=== PATIENT | female | born 1940 | race Caucasian/White ===

== ENCOUNTER → 2016-12-24 | Outpatient (CLI) | payer MEDICARE ==
[~2016-12-24] MED LIST: ACHD5005 PO; AMLO10TA4 PO; ASP81CT PO; ASPI-875 PO; BIOT1TAB2 PO; BIOT25006 PO; BIOTIN 5000MCG PO; CHOL200018 PO; DOCU100T7 PO; ENAL1TAB8 PO; FURO20TA4 PO; GLUC500C2 PO; INDA1.25 PO; KETO-22 PO; LEVO500T69 PO; METO-272 PO; METO100T5 PO; MTF500T PO; OMEG300C5 PO; OMG1KC PO; PNT40TEC PO; POTA10TA17 PO; SIMV20TA3 PO; [UNRECOGNIZED DRUG - OTHER]; potassium citrate PO
--- OUTSIDE RECORDS SUMMARY | 2016-12-24 10:47 | XMS REPORT | Continuity of Care Document ---
Author Author [facility] Organization [facility] Address Unknown Phone Unavailable Care Team Providers Care Graduate Research Assistant Name Role Phone Morelia Alfaro PCP [phone] Source Comments Some departments are not documenting in the electronic medical record. If you do not see the information that you expected, contact Release of Information in the Health Information Management department at [phone] for further assistance in locating additional records.[facility] Active Allergies and Adverse Reactions No Known Allergies Current Medications Prescription Sig. Disp. Refills Start End Date Status Date amLODIPine (NORVASC) 5 mg Take 5 mg by mouth daily. Active tablet pantoprazole DR Take 40 mg by mouth Active (PROTONIX) 40 mg tablet daily. indapamide(+) (LOZOL) Take 1.25 mg by mouth Active 1.25 mg tablet daily. simvastatin (ZOCOR) 20 mg Take 20 mg by mouth at Active tablet bedtime daily. metoprolol XL (TOPROL XL) Take 100 mg by mouth at Active 100 mg tablet bedtime daily. furosemide (LASIX) 20 mg Take 20 mg by mouth as Active tablet Needed. potassium chloride Take 20 mEq by mouth as Active (KLOR-CON) 20 mEq packet Needed. ALPRAZolam (XANAX) 0.25 Take 0.25 mg by mouth as Active mg tablet Needed. aspirin 81 mg chewable Take 81 mg by mouth Active tablet daily. BIOTIN PO Take 1 Tab by mouth Active daily. metFORMIN (GLUCOPHAGE) Take 1,000 mg by mouth Active 1,000 mg tablet twice daily with meals. Indications: TYPE 2 DIABETES MELLITUS ERGOCALCIFEROL (VITAMIN Take 1,000 mg by mouth Active D2) (VITAMIN D PO) daily. cholecalciferol (VITAMIN Take 1,000 Units by mouth Active D-3) 1,000 units tablet daily. letrozole (FEMARA) 2.5 mg Take 1 Tab by mouth 90 Tab 3 08/17/20 Active tablet daily. 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 Left, grade 1 IDC (ER100%, PR100%, HER2 0+, Ki-67 20%) at 2:00, dx 01/2015 2. Heterogeneously dense breast tissue HISTORY: Ms. Sullivan is a female who presented to [facility] on 02/20/2015 at age 74 for evaluation of left breast cancer. She went to her PCP for a yearly exam and her PCP found a left breast lump at the beginning of January 2015. Left breast sono-guided biopsy 02/07/15 ([place], [place]) revealed a grade 2 invasive ductal carcinoma. She had a previous left stereotactic biopsy in December 2012 which revealed a hyalinized fibroadenoma. She has had multiple benign excisional biopsies in both breasts. Ms. Sullivan underwent left RSL lumpectomy/SLNB on 08/26/15. She finished radiation with Dr. Iglesias in [place], [place] on 11/12/15. PATHOLOGY: Tumor: 2.1 cm tumor bed with 1.6 cm residual tumor; 40-50% tumor viability Margins Free From Tumor: Yes ER: positive AR: positive Her 2: negative Grade: 1 Lymph Nodes: 0/5 LVSI: no Extranodal extension: no BREAST IMAGING: Mammogram: -- Bilateral diagnostic mammogram 02/06/15 ([place], [place]) revealed heterogeneously dense breast tissue. There were no definitive masses seen. Ultrasound: -- Left breast ultrasound 02/06/15 ([place], [place]) revealed a 2.1 cm hypoechoic mass at 2:00, 7 cm FTN. There was a nonspecific 1.3 cm axillary lymph node. -- Left axillary ultrasound 02/20/15 () revealed no suspicious axillary lymph nodes. REPRODUCTIVE HEALTH: Age at first Menarche: 12 Age at First Live : N/A Age at Menopause: 55 : 0 Para: 2 : N/A PROCEDURE: Left RSL lumpectomy/SLNB, 08/26/15 PERTINENT PMH: HTN, GERD, DM2 controlled FAMILY HISTORY: No family history of breast, ovarian, prostate or pancreatic cancer PHYSICAL EXAM on PRESENTATION: Left - 2.5-3 cm lump at 2:30, 7 cm FTN. Multiple well healed excisional biopsy scars. Right - No palpable breast masses. No skin, nipple, or areolar change. Multiple excisional biopsy incisions. No supraclavicular or axillary adenopathy. MEDICAL ONCOLOGY: Dr. Hutchins PRESENT THERAPY: Neoadjuvant Femara started 02/25/15 REFERRED BY: Self Most Recent Encounters Date Type Specialty Providers Description 10/12/2016 Telephone Oncology Leela Tsai MD Appointment - reschedule appointments Immunizations Name Dates Previously Given Next Due Pneumococcal Vaccine 09/08/2016 (23-Crystal Adult) Social History Tobacco Use Types Packs/Day Years Used Date Former Smoker 2 Smokeless Tobacco: Never Used Alcohol Use Drinks/Week oz/Week Comments Yes Last Filed Vital Signs Vital Sign Reading Time Taken Blood Pressure 147/69 09/18/2016 8:57 AM [employer] Pulse 77 09/18/2016 8:57 AM [employer] Temperature 36.8 C (98.2 F) 09/18/2016 8:57 AM [employer] Respiratory Rate 16 09/18/2016 8:57 AM [employer] Height 1.651 m (5' 5") 09/18/2016 8:57 AM [employer] Weight 69.31 kg (152 lb 12.8 oz) 09/18/2016 8:57 AM [employer] Body Mass Index 25.43 09/18/2016 8:57 AM [employer] Oxygen Saturation 97% 09/18/2016 8:57 AM [employer] Plan of Care Date Type Specialty Providers Description 03/23/2017 Appointment Radiology Benji Oscar DO [address] [place] [address] [phone] (Fax) 03/23/2017 Appointment Radiology Benji Oscar DO [address] [place] [address] [phone] (Fax) 03/23/2017 Appointment Oncology Colt Hutchins MD [address] [facility] [address] [place] [address] [phone] (Fax) 03/23/2017 Appointment Breast Clinic / Breast Leela Tsai MD [place] [address] [place] [address] [phone] (Fax) Health Maintenance Due Date Last Done Comments Physical (Comprehensive) 1947 Exam Pertussis Vaccine 1951 Tetanus Vaccine 1957 Shingles Vaccine 2000 Influenza Vaccine 07/02/2016 Prevnar/Pneumovax (#2) 09/08/2017 09/08/2016 Osteoporosis Screening Completed 12/04/2015 Results from Last 3 Months Not on file
--- NOTE | 2016-12-30 07:37 | ECHOCARDIOGRAPHY REPORT ---
PROCEDURE PHYSICIAN: GRADY HUNTLEY DATE OF PROCEDURE: 12/24/2016 TWO DIMENSIONAL ECHOCARDIOGRAM REPORT PRIMARY PHYSICIAN: Dr. Alfaro OTHER PHYSICIAN: REFERRING PHYSICIAN: ORDERING PHYSICIAN: Mary Rebolledo APRN INDICATION FOR THE PROCEDURE: 1. Coronary artery disease. 2. Hypertension. 3. Hyperlipidemia. MEASUREMENTS DERIVED VALUES LV DIAMETER (LAX) NORMALS NORMALS Diastolic 4.8 (3.6-5.2) Eject. Fract. (60%+/-6%) Systolic (2.3-3.9) Diastolic Vol. % Shortening (0.22-0.42) Systolic Vol. Aortic Root 2.5 IVS THICKNESS Diastolic 0.8 (0.6-1.1) LVPW THICKNESS Diastolic 0.8 (0.6-1.1) LA DIAMETER Systolic 4.5 (2.1-3.7) DESCRIPTION: Two-dimensional echocardiography shows well preserved global left ventricular systolic function without distinct regional wall motion abnormalities. Left ventricular ejection fraction 55 to 60%. There appears to be mild mitral annular calcification. There is no significant pericardial effusion. There is mild to moderate mitral regurgitation. There is no Doppler evidence of significant valvular stenosis. There is mild enlargement of the left atrium. There is no evidence of any significant intracardiac shunt on this transthoracic echocardiographic study. Inferior vena cava appears to be mildly dilated but does seem to have inspiratory collapse. CONCLUSIONS: 1. Normal global left ventricular systolic function with an ejection fraction of approximately 55 to 60%. 2. Mild to moderate mitral regurgitation. 3. Trivial tricuspid regurgitation. 4. Pulmonary artery systolic pressure is estimated to be within normal limits. 5. Mild diastolic dysfunction of the left ventricle. 6. Mild mitral annular calcification and aortic valve sclerosis without evidence of significant valvular stenosis. 7. Mild enlargement of the left atrium. Job ID: [id number] Dictated Date: 12/29/2016 13:36:47 Railway Signal Operator Date: 12/30/2016 07:33:29 / lucy
== END ==
LOC: CARD 10:43
PROVIDERS: ATTEND Nurse Practitioner Family
DX: I25.10 Atherosclerotic heart disease of native coronary artery without angina pectoris (principal); I10 Essential (primary) hypertension; E78.4 Other hyperlipidemia; I34.0 Nonrheumatic mitral (valve) insufficiency
CPT/HCPCS: 93306

== ENCOUNTER → 2017-02-15 | Outpatient (CLI) | payer MEDICARE ==
--- NOTE | 2017-02-15 15:40 | Diagnostic Imaging Report ---
EXAMINATION: Three views of the left fingers. INDICATION: Left middle finger open wound. Evaluate for foreign body. FINDINGS: There are degenerative osteoarthritic changes in the distal interphalangeal joints, most prominent in the left index and middle finger. No fracture, dislocation, or subluxation. No radiopaque foreign body is seen. IMPRESSION: Degenerative changes. Dictated by: Dictated on workstation # [id number]
== END ==
LOC: RAD 12:09
PROVIDERS: ATTEND Family Medicine
DX: S61.203A Unspecified open wound of left middle finger without damage to nail, initial encounter (principal); X58.XXXA Exposure to other specified factors, initial encounter; Y92.017 Garden or yard in single-family (private) house as the place of occurrence of the external cause; Y99.8 Other external cause status
CPT/HCPCS: 73140

== ENCOUNTER → 2017-06-14 | Outpatient (CLI) | payer MEDICARE ==
[~2017-06-14] MED LIST changes: +GADOBUTROL 7.5 MMOL/7.5 ML (GADAVIST) VIAL IV ONE
--- NOTE | 2017-06-14 13:28 | Diagnostic Imaging Report ---
PROCEDURE: MR imaging of the brain with and without contrast. TECHNIQUE: Multiplanar, multisequence MR imaging of the brain was performed with and without contrast. INDICATION: Difficulty with balance. COMPARISON: There are no prior studies available for comparison. FINDINGS: There is no mass, shift of the midline or hemorrhage to suggest an acute intracranial abnormality. There is no abnormal signal arising from the brain on the diffusion series to indicate an area of acute ischemia either. Furthermore, there is no abnormal enhancement on the postcontrast sequence to suggest a neoplastic or infectious process. The ventricles are prominent. I suspect that the size of the ventricles is more likely due to the underlying cortical atrophy than to normal pressure hydrocephalus. There are also a few small areas of altered signal in the periventricular white matter on the FLAIR series. These are nonspecific but may be secondary to encephalomalacia from microvascular ischemia. The sella is not enlarged. The expected carotid flow voids are evident bilaterally. The orbits are symmetrical and within normal limits. There is mild mucosal thickening of the ethmoid sinuses. The sinuses are otherwise clear. The seventh and eighth nerve complexes are unremarkable. IMPRESSION: 1. There is no evidence for an acute intracranial abnormality and there is no sign of a mass lesion. 2. The ventricles are prominent. The size of the ventricles is more likely due to the underlying cortical atrophy and periventricular encephalomalacia than to normal pressure hydrocephalus. However, if there is clinical concern regarding normal pressure hydrocephalus, then a nuclear medicine cisternogram would be recommended for further evaluation. Dictated by: Dictated on workstation # [id number]
== END ==
LOC: RAD 11:45
PROVIDERS: ATTEND Nurse Practitioner Family
DX: R27.0 Ataxia, unspecified (principal); R53.1 Weakness
CPT/HCPCS: 70553

== ENCOUNTER → 2019-01-31 | Outpatient (CLI) | payer MEDICARE ==
[~2019-01-31] MED LIST changes: +CATHETER FLUSH 10 ML SYR IV PRN; -GADOBUTROL 7.5 MMOL/7.5 ML (GADAVIST) VIAL IV ONE; +REGADENOSON 0.4 MG/5 ML SYR (LEXISCAN) IV ONE
[2019-01-31 09:17] VITALS: BP 147/87
--- NOTE | 2019-02-02 14:53 | STRESS TEST ---
DATE OF SERVICE: 01/31/2019 RESTING AND POST REGADENOSON TECHNETIUM-99M TETROFOSMIN SPECT CT IMAGING ORDERING PHYSICIAN: Mary Rebolledo APRN. PRIMARY PHYSICIAN: Dr. Alfaro. CLINICAL DIAGNOSES: Coronary artery disease. Baseline images were carried out after injection of 10.06 mCi of technetium-99m Tetrofosmin. This is followed by 0.4 mg of Regadenoson and 29.5 mCi of technetium-99m Tetrofosmin for stress imaging. The electrocardiogram showed sinus rhythm at baseline. It did not change significantly with the Regadenoson infusion. Isolated premature atrial contractions were seen. The patient did not report significant symptoms. Review of images at rest and following stress does not indicate evidence of significant myocardial ischemia or infarction. Gated images show normal global left ventricular systolic function with normal regional wall motion. Left ventricular ejection fraction is calculated to be 71%. CONCLUSIONS: 1. No evidence of myocardial ischemia or infarction is seen. 2. Normal regional wall motion. 3. Normal global left ventricular systolic function with a calculated ejection fraction of 71%. Job ID: [id number] DocumentID: [id number] Dictated Date: 02/02/2019 14:39:29 Pharmacy General Manager Date: 02/02/2019 14:52:49 Dictated By: GRADY HUNTLEY MD, MA, FACP, FACC,
== END ==
LOC: CARD 07:39
PROVIDERS: ATTEND Nurse Practitioner Family
DX: I25.10 Atherosclerotic heart disease of native coronary artery without angina pectoris (principal); I77.9 Disorder of arteries and arterioles, unspecified; E78.5 Hyperlipidemia, unspecified; I10 Essential (primary) hypertension
CPT/HCPCS: 78452; 93017

== ENCOUNTER → 2020-12-24 | Outpatient (CLI) | payer MEDICARE ==
[~2020-12-24] MED LIST changes: -CATHETER FLUSH 10 ML SYR IV PRN; -REGADENOSON 0.4 MG/5 ML SYR (LEXISCAN) IV ONE
== END ==
LOC: LAB 13:02
PROVIDERS: ATTEND Nurse Practitioner Family
DX: R19.5 Other fecal abnormalities (principal)
CPT/HCPCS: 87324; 87449

== ENCOUNTER → 2021-01-13 | Outpatient (CLI) | payer MEDICARE | LOC: RAD 12:00 | PROVIDERS: ATTEND Nurse Practitioner Family | DX: Z53.9 Procedure and treatment not carried out, unspecified reason (principal) ==

== ENCOUNTER → 2021-01-13 | Outpatient (CLI) | payer MEDICARE ==
--- NOTE | 2021-01-13 12:38 | Diagnostic Imaging Report ---
PROCEDURE: US right lower extremity venous. TECHNIQUE: Multiple real-time grayscale images were obtained over the right lower extremity in various projections. Additional spectral analysis and color Doppler duplex images were also obtained. INDICATION: Right lower extremity edema EXAMINATION: Grayscale and color Doppler evaluation of the deep veins of the right lower extremity were performed with waveform analysis. FINDINGS: Continuous venous flow is present. No intraluminal filling defect is identified. There is normal compressibility and response to augmentation. No abnormal perivascular fluid collection is identified. IMPRESSION: No ultrasound evidence of right lower extremity deep venous thrombosis. Dictated by: Dictated on workstation # [id number]
== END ==
LOC: RAD 11:19
PROVIDERS: ATTEND Nurse Practitioner Family
DX: M25.471 Effusion, right ankle (principal)

== ENCOUNTER → 2021-07-30 | Outpatient (CLI) | payer MEDICARE | LOC: RAD 10:55 | PROVIDERS: ATTEND Family Medicine | DX: Z12.31 Encounter for screening mammogram for malignant neoplasm of breast (principal) | CPT/HCPCS: 77063; 77067 ==

== ENCOUNTER → 2022-01-14 | Outpatient (CLI) | payer MEDICARE | LOC: CARD 15:00 | PROVIDERS: ATTEND Nurse Practitioner Family | DX: I49.9 Cardiac arrhythmia, unspecified (principal) | CPT/HCPCS: 93225; 93226 ==

== ENCOUNTER → 2022-08-04 | Outpatient (CLI) | payer MEDICARE ==
--- NOTE | 2022-08-04 12:56 | Diagnostic Imaging Report ---
INDICATION: Routine screening. COMPARISON: 07/30/2021 and 05/02/2019. TECHNIQUE: 2D and 3D bilateral screening mammography was performed with CAD. FINDINGS: Both breasts are heterogeneously dense, limiting the sensitivity of mammography. Surgical clips in the left breast are again noted. There are scattered benign calcifications throughout both breasts. No mass or malignant-appearing microcalcifications are seen. The axillae are unremarkable. IMPRESSION: No mammographic features suspicious for malignancy are identified. ACR BI-RADS Category 2: Benign findings. Result letter will be mailed to the patient. Note: At least 10% of breast cancer is not imaged by mammography. Dictated by: Dictated on workstation # [id number]
--- NOTE | 2022-08-04 14:31 | Diagnostic Imaging Report ---
INDICATION: Postmenopausal screening COMPARISON: 12/21/2013 FINDINGS: AP Spine L1-L4: [BMD (g/cm2): 0.943] [T-Score: -2.1] [Z-Score: -0.3] [BMD Previous: 0.977] [BMD % Change: -3.5] LT Hip Neck: [BMD (g/cm2): 0.696] [T-Score: -2.5] [Z-Score: -0.2] LT Hip Total: [BMD (g/cm2):0.684] [T-Score:-2.6] [Z-Score: -0.5] [BMD Previous: 0.786] [BMD % Change: -13.0] RT Hip Neck: [BMD (g/cm2):0.696] [T-Score:-2.5] [Z-Score:-0.2.] RT Hip Total: [BMD (g/cm2):0.702] [T-score:-2.4] [Z-Score:-0.3] [BMD Previous:0.778] [BMD % Change:-9.8] *Indicates significant change from prior examination based on 95% confidence level. World Health Organization criteria for BMD interpretation classify patients as Normal (T-score at or above -1.0), Osteopenic (T-score between -1.0 and -2.5) or Osteoporotic (T-score at or below -2.5). LIMITATIONS AND MODIFICATION: None. FRACTURE RISK (FRAX SCORE): The ten year probability of (%): Major Osteoporotic Fracture: [18.9] Hip Fracture: [6.9] IMPRESSION: 1. Osteoporosis. 2. Bone mineral density has decreased by a statistically significant amount, as detailed above. 3. See below National Osteoporosis Foundation guidelines on when to potentially initiate pharmacologic therapy. Based on the National Osteoporosis Foundation Guidelines, pharmacologic treatment should be initiated in any of the following, unless clinical conditions suggest otherwise: * Any patient with prior fragility fracture of the hip or vertebrae. A spine fracture indicates 5X risk for subsequent spine fracture and 2X risk for subsequent hip fracture. * Osteoporosis (T-score <-2.5). * Postmenopausal women and men age 50 and older with low bone mass/osteopenia (T-score between -1.0 and -2.5) by DXA and 10-year major osteoporotic fracture greater than 20% or a 10-year probability of hip fracture greater than 3%. These fracture risks are supplied above in the FRAX score, if applicable. * Clinician judgement and/or patient preferences may indicate treatment for people with 10-year fracture probabilities above or below these levels. Dictated by: Dictated on workstation # [id number]
== END ==
LOC: RAD 10:17
PROVIDERS: ATTEND Family Medicine
DX: Z12.31 Encounter for screening mammogram for malignant neoplasm of breast (principal); M81.0 Age-related osteoporosis without current pathological fracture; Z78.0 Asymptomatic menopausal state
CPT/HCPCS: 77063; 77067; 77080

== ENCOUNTER 2022-08-16 18:12 | Inpatient (IN) | payer MEDICARE ==
[~2022-08-16] VITALS: Ht 167.7 cm; Wt 66.4 kg
[2022-08-16 18:24] LABS: BASOPHILS % (AUTO) 1 % (0-10); EOSINOPHILS # (AUTO) 0.2 10^3/uL (0.0-0.3); EOSINOPHILS % (AUTO) 3 % (0-10); HEMATOCRIT 41 % (35-52); HEMOGLOBIN 13.8 g/dL (11.5-16.0); LYMPHOCYTES # (AUTO) 2.3 10^3/uL (1.0-4.0); LYMPHOCYTES % (AUTO) 38 % (12-44); MEAN CORPUSCULAR HEMOGLOBIN 33 pg (25-34); MEAN CORPUSCULAR HGB CONC 34 g/dL (32-36); MEAN CORPUSCULAR VOLUME 98 fL (80-99); MEAN PLATELET VOLUME 9.7 fL (9.0-12.2); MONOCYTES # (AUTO) 0.8 10^3/uL (0.0-1.0); MONOCYTES % (AUTO) 13 % (0-12); NEUTROPHILS # (AUTO) 2.8 10^3/uL (1.8-7.8); NEUTROPHILS % (AUTO) 46 % (42-75); PLATELET COUNT 217 10^3/uL (130-400); WHITE BLOOD COUNT 6.1 10^3/uL (4.3-11.0)
--- NOTE | 2022-08-16 18:24 | ED Cardiac General ---
History of Present Illness General Chief Complaint: Cardiac/General Problems Stated Complaint: CHEST PAIN Source: patient History of Present Illness Date Seen by Provider: Aug 16, 2022 Time Seen by Provider: 18:13 Initial Comments PT ARRIVES VIA POV FROM HOME WITH C/O PALPITATIONS-STATES HER HEART FEELS LIKE IT IS RACING BEGAN AROUND 1700 TODAY. Allergies and Home Medications Allergies Coded Allergies: No Known Drug Allergies (Unverified , 01/31/12) Patient Home Medication List Amlodipine Besylate (Norvasc) 10 Mg Tablet, 5 MG PO DAILY Prescribed by: EZRA COBIAN on 02/12/15821 Aspirin ([place] Aspirin) 81 Mg Tablet.dr, 81 MG PO HS, (Reported) Entered as Reported by: BHAVNA DE SOUZA on 12/26/13 0815 Biotin/Calcium Carbonate (Biotin 800 Mcg Tablet) 1 Each Tablet, 1 EACH PO DAILY, (Reported) Entered as Reported by: EZRA COBIAN on 02/12/15821 Furosemide (Furosemide) 20 Mg Tablet, 1 EACH PO PRN, (Reported) Entered as Reported by: EZRA COBIAN on 02/12/15821 Indapamide (Indapamide) 1.25 Mg Tablet, 1.25 MG PO DAILY, (Reported) Entered as Reported by: EZRA COBIAN on 02/12/15821 Metformin Hcl (Metformin 500 Mg) 500 Mg Tablet, 1,000 MG PO BID, (Reported) Entered as Reported by: BHAVNA DE SOUZA on 12/26/13 0809 Metoprolol Succinate (Metoprolol Succinate Xl 100 Mg) 100 Mg Tab.sr.24h, 100 MG PO DAILY Prescribed by: DARRYL AHMADI on 12/27/13 0746 Pantoprazole Sodium (Protonix) 40 Mg Tablet.dr, 40 MG PO DAILY@0700 Prescribed by: DARRYL AHMADI on 12/27/13 0746 Simvastatin (Simvastatin) 20 Mg Tablet, 20 MG PO HS, (Reported) Entered as Reported by: OBINNA BILLINGS on 01/31/12 0506 [Chlor Zeb Prn] Prescribed by: EZRA COBIAN on 02/12/15 08 Past Pgynchc-Joxyob-Cijuhf Hx Patient Social History Tobacco Use?: No Use of E-Cig and/or Vaping dev: No Substance use?: No Alcohol Use?: No Pt feels they are or have been: No Immunizations Up To Date Tetanus Booster (TDap): Unknown Influenza Vaccine Up-to-Date: No; Not Current First/Initial COVID19 Vaccinat: 2020 Second COVID19 Vaccination Todd: 2020 Past Medical History Reproductive Disorders: No Kidney Stones Gall Bladder Disease Diabetes, Non-Insulin dep Cataract Skin Family Medical History Cancer 03 MOTHER, Onset:60 years & older Cancer of colon FAM HX-OTH KIDNEY DISEASES Kidney disease 03 MOTHER, Onset:60 years & older Stroke 03 FATHER, Onset:60 years & older 03 MOTHER, Onset:60 years & older Physical Exam Vital Signs Vital Signs - First Documented 08/16/22 18:16 Temp 37.2 Pulse 102 Resp 22 B/P (MAP) 84/109 (101) Pulse Ox 98 O2 Delivery Room Air Capillary Refill : Height, Weight, BMI Height: 5'5.00" Weight: 155lbs. 5.0oz. 70.462531nn; BMI Method:Stated Progress/Results/Core Measures Results/Orders Lab Results Laboratory Tests Test 08/16/22 18:17 Range/Units White Blood Count 6.1 4.3-11.0 10^3/uL Red Blood Count 4.16 3.80-5.11 10^6/uL Hemoglobin 13.8 11.5-16.0 g/dL Hematocrit 41 35-52 % Mean Corpuscular Volume 98 80-99 fL Mean Corpuscular Hemoglobin 33 25-34 pg Mean Corpuscular Hemoglobin Concent 34 32-36 g/dL Red Cell Distribution Width 12.6 10.0-14.5 % Platelet Count 217 130-400 10^3/uL Mean Platelet Volume 9.7 9.0-12.2 fL Immature Granulocyte % (Auto) 0 % Neutrophils (%) (Auto) 46 42-75 % Lymphocytes (%) (Auto) 38 12-44 % Monocytes (%) (Auto) 13 H 0-12 % Eosinophils (%) (Auto) 3 0-10 % Basophils (%) (Auto) 1 0-10 % Neutrophils # (Auto) 2.8 1.8-7.8 10^3/uL Lymphocytes # (Auto) 2.3 1.0-4.0 10^3/uL Monocytes # (Auto) 0.8 0.0-1.0 10^3/uL Eosinophils # (Auto) 0.2 0.0-0.3 10^3/uL Basophils # (Auto) 0.0 0.0-0.1 10^3/uL Immature Granulocyte # (Auto) 0.0 0.0-0.1 10^3/uL Prothrombin Time 12.5 12.2-14.7 SEC INR Comment 0.9 0.8-1.4 Activated Partial Thromboplast Time 32 24-35 SEC Sodium Level 141 135-145 MMOL/L Potassium Level 3.3 L 3.6-5.0 MMOL/L Chloride Level 99 98-107 MMOL/L Carbon Dioxide Level 27 21-32 MMOL/L Anion Gap 15 H 5-14 MMOL/L Blood Urea Nitrogen 19 H 7-18 MG/DL Creatinine 1.40 H 0.60-1.30 MG/DL Estimat Glomerular Filtration Rate 38 BUN/Creatinine Ratio 14 Glucose Level 124 H 70-105 MG/DL Calcium Level 11.3 H 8.5-10.1 MG/DL Corrected Calcium 8.5-10.1 MG/DL Magnesium Level 1.9 1.6-2.4 MG/DL Total Bilirubin 0.5 0.1-1.0 MG/DL Aspartate Amino Transf (AST/SGOT) 14 5-34 U/L Alanine Aminotransferase (ALT/SGPT) 18 0-55 U/L Alkaline Phosphatase 94 40-136 U/L Total Creatine Kinase 27 L 29-168 U/L Creatine Kinase MB 1.4 <6.6 NG/ML Myoglobin 41.2 10.0-92.0 NG/ML Troponin I < 0.028 <0.028 NG/ML B-Type Natriuretic Peptide 104.9 H <100.0 PG/ML Total Protein 7.9 6.4-8.2 GM/DL Albumin 4.6 H 3.2-4.5 GM/DL My Orders Orders - ROSELYN GARCIA DO Ekg Tracing (08/16/22 18:15) Ed Iv/Invasive Line Start (08/16/22 18:16) Ekg Tracing (08/16/22 18:16) O2 (08/16/22 18:16) Monitor-Rhythm Ecg Trace Only (08/16/22 18:16) Bnp Jonnathan (08/16/22 18:16) Cbc With Automated Diff (08/16/22 18:16) Comprehensive Metabolic Panel (08/16/22 18:16) Creatine Kinase (08/16/22 18:16) Creatine Kinase Mb (08/16/22 18:16) Magnesium (08/16/22 18:16) Protime With Inr (08/16/22 18:16) Partial Thromboplastin Time (08/16/22 18:16) Thyroid Analyzer (08/16/22 18:16) Myoglobin Serum (08/16/22 18:16) Troponin I Jonnathan (08/16/22 18:16) Chest 1 View, Ap/Pa Only (08/16/22 18:16) Aspirin Chewable Tablet (Baby Aspirin Ch (08/16/22 18:30) Enoxaparin Injection (Lovenox Injection) (08/16/22 18:30) Diltiazem Injection (Cardizem Injection) (08/16/22 18:30) Diltiazem Drip Pre-Mix (Cardizem Drip Pr (08/16/22 19:00) Medications Given in ED Current Medications Medications Dose Ordered Sig/Jacinto Route Start Time Stop Time Status Last Admin Dose Admin Aspirin 324 mg ONCE ONCE PO 08/16/22 18:30 08/16/22 18:31 DC 08/16/22 18:34 324 MG Diltiazem HCl 10 mg ONCE ONCE IVP 08/16/22 18:30 08/16/22 18:31 DC 08/16/22 18:34 10 MG Enoxaparin Sodium 70 mg ONCE ONCE SC 08/16/22 18:30 08/16/22 18:31 DC 08/16/22 18:35 70 MG Vital Signs/I&O 08/16/22 08/16/22 18:16 18:34 Temp 37.2 Pulse 102 109 Resp 22 B/P (MAP) 84/109 (101) 167/92 Pulse Ox 98 O2 Delivery Room Air Diagnostic Imaging Comments CXR--PER RADIOLOGIST REPORT AT 1849 FINDINGS: The lungs are clear without edema or pneumonia. No pleural effusion or pneumothorax. Heart size is normal. Generator pack projects over the left shoulder. IMPRESSION: Clear lungs. Reviewed: Reviewed by Me Departure Impression Primary Impression: Atrial fibrillation with rapid ventricular response Additional Impressions: HTN (hypertension) NIDDM Departure-Patient Inst. Referrals: ISABELLA DWYER MD (PCP/Family) Primary Care Physician ROSELYN GARCIA DO Aug 16, 2022 18:24
[2022-08-16] MEDS ORDERED: ASPIRIN 81 MG CHEW (CHILDREN'S ASA) PO ONE (18:30)
[2022-08-16] MEDS ORDERED: ENOXAPARIN 80 MG/0.8 ML (LOVENOX) SYR SC ONE (18:30)
[2022-08-16 18:32] LABS: ALBUMIN 4.6 GM/DL (3.2-4.5); CHLORIDE 99 MMOL/L (98-107); POTASSIUM 3.3 MMOL/L (3.6-5.0); SODIUM 141 MMOL/L (135-145)
[2022-08-16 18:33] LABS: CALCIUM 11.3 MG/DL (8.5-10.1)
[2022-08-16 18:34] LABS: GLUCOSE 124 MG/DL (70-105); TOTAL PROTEIN 7.9 GM/DL (6.4-8.2)
[2022-08-16 18:35] LABS: CARBON DIOXIDE 27 MMOL/L (21-32); INR 0.9 (0.8-1.4); PROTHROMBIN TIME PATIENT 12.5 SEC (12.2-14.7)
[2022-08-16 18:36] LABS: BILIRUBIN,TOTAL 0.5 MG/DL (0.1-1.0)
[2022-08-16 18:38] LABS: ALKALINE PHOSPHATASE 94 U/L (40-136); GFR ESTIMATED 38
[2022-08-16 18:39] LABS: BUN/CREATININE RATIO 14
[2022-08-16 18:41] LABS: ALANINE AMINOTRANSFERASE 18 U/L (0-55); MAGNESIUM 1.9 MG/DL (1.6-2.4)
[2022-08-16 18:42] LABS: CREATINE KINASE 27 U/L (29-168)
--- NOTE | 2022-08-16 18:43 | Diagnostic Imaging Report ---
EXAMINATION: Chest 1 view. HISTORY: Palpitations. COMPARISON: 12/25/2013. FINDINGS: The lungs are clear without edema or pneumonia. No pleural effusion or pneumothorax. Heart size is normal. Generator pack projects over the left shoulder. IMPRESSION: Clear lungs. Dictated by: Dictated on workstation # [id number]
[2022-08-16 18:49] LABS: CREATINE KINASE MB 1.4 NG/ML (<6.6)
[2022-08-16] MEDS ORDERED: dilTIAZem DRIP PRE-MIX 125 ML IV SCH ×2 (19:00→21:00)
[2022-08-16 20:02] VITALS: BP 143/71
[2022-08-16] MEDS ORDERED: NS IV 500 ML 500 ML IV PRN (20:30)
[2022-08-16] MEDS ORDERED: NS IV 1000 ML 1,000 ML ONE (20:41)
[2022-08-16] MEDS ORDERED: NS IV 1000 ML 1,000 ML IV SCH (21:00)
[2022-08-16] MEDS: inSUlin ASPART (NovoLOG) 1 UNIT/0.01 ML (CHARGE PER UNIT) SC SCH (21:04)
[2022-08-16] MEDS: NS IV 1000 ML 1,000 ML IV SCH (21:04)
[2022-08-16] MEDS: APIXABAN 5 MG (ELIQUIS) TABLET PO SCH (21:18)
[2022-08-17 04:40] LABS: BASOPHILS % (AUTO) 1 % (0-10); EOSINOPHILS # (AUTO) 0.2 10^3/uL (0.0-0.3); EOSINOPHILS % (AUTO) 4 % (0-10); HEMATOCRIT 35 % (35-52); HEMOGLOBIN 11.9 g/dL (11.5-16.0); LYMPHOCYTES # (AUTO) 1.5 10^3/uL (1.0-4.0); LYMPHOCYTES % (AUTO) 27 % (12-44); MEAN CORPUSCULAR HEMOGLOBIN 33 pg (25-34); MEAN CORPUSCULAR HGB CONC 34 g/dL (32-36); MEAN CORPUSCULAR VOLUME 99 fL (80-99); MEAN PLATELET VOLUME 10.4 fL (9.0-12.2); MONOCYTES # (AUTO) 0.8 10^3/uL (0.0-1.0); MONOCYTES % (AUTO) 15 % (0-12); NEUTROPHILS # (AUTO) 2.9 10^3/uL (1.8-7.8); NEUTROPHILS % (AUTO) 53 % (42-75); PLATELET COUNT 184 10^3/uL (130-400); WHITE BLOOD COUNT 5.4 10^3/uL (4.3-11.0)
[2022-08-17 04:50] LABS: ALBUMIN 3.7 GM/DL (3.2-4.5)
[2022-08-17 04:51] LABS: POTASSIUM 4.1 MMOL/L (3.6-5.0)
[2022-08-17 04:53] LABS: TOTAL PROTEIN 6.3 GM/DL (6.4-8.2)
[2022-08-17 04:55] LABS: BILIRUBIN,TOTAL 0.5 MG/DL (0.1-1.0)
[2022-08-17 04:56] LABS: PHOSPHORUS 2.8 MG/DL (2.3-4.7)
[2022-08-17 04:57] LABS: CREATININE SERUM 0.77 MG/DL (0.60-1.30)
[2022-08-17 04:59] LABS: MAGNESIUM 1.8 MG/DL (1.6-2.4)
[2022-08-17] MEDS: inSUlin ASPART (NovoLOG) 1 UNIT/0.01 ML (CHARGE PER UNIT) SC SCH ×2 (05:49→11:00)
[2022-08-17] MEDS ORDERED: POTASSIUM CL 10MEQ/50ML IVPB 50 ML IV SCH (06:00)
[2022-08-17] MEDS ORDERED: KCL 20 MEQ TAB (K-DUR) PO SCH (06:00)
[2022-08-17] MEDS ORDERED: MAGNESIUM 1 GM/100 ML IVPB 100 ML IV SCH (06:00)
--- NOTE | 2022-08-17 08:08 | Diagnostic Imaging Report ---
Indication: Atrial fibrillation. Compared: 08/16 Findings: No focal consolidation. The pulmonary venous structures however are more prominent than on prior but no skyler edema. No pneumothorax. Curvilinear calcifications along the right heart border inferiorly unchanged. Impression: Mild vascular congestion is developed, no other change. Dictated by: Dictated on workstation # [id number]
[2022-08-17] MEDS: NS IV 1000 ML 1,000 ML IV SCH (08:15)
[2022-08-17] MEDS: APIXABAN 5 MG (ELIQUIS) TABLET PO SCH (08:15)
[2022-08-17] MEDS ORDERED: dilTIAZem120 MG (CARDIZEM CD) CAP PO NR (08:30)
--- NOTE | 2022-08-17 08:36 | Consultation-Cardiology ---
HPI-Cardiology Cardiology Consultation Date of Consultation 08/17/22 Date of Admission Time Seen by Provider: 08:33 Indication: Palpitation HPI 81 years old lady with history of paroxysmal atrial tachycardia, palpitation, has a Zio patch on, started to have palpitation and felt her heart racing. Came into the emergency room and noted to have irregular rhythm with tachycardia with a heart rate 1 20-1 30, given Cardizem and her heart rate has improved on Cardizem drip. She reported episodes of palpitation has been varying in length. No chest pain. No shortness of breath. No syncope. Home Medications & Allergies Allergies: Coded Allergies: No Known Drug Allergies (Unverified , 01/31/12) Home Medication List Reviewed: Yes [id number] Hx Patient Social History Marital Status: Employed/Student: retired Have you traveled recently?: No Alcohol Use?: No Immunizations Up To Date Tetanus Booster (TDap): Unknown Date of Pneumonia Vaccine: Nov 01, 2007 Date of Influenza Vaccine: Aug 01, 2013 Past Medical History Discussed below Family Medical History Family History: Cancer 03 MOTHER, Onset:60 years & older Cancer of colon FAM HX-OTH KIDNEY DISEASES Kidney disease 03 MOTHER, Onset:60 years & older Stroke 03 FATHER, Onset:60 years & older 03 MOTHER, Onset:60 years & older Review of Systems-General Review of Systems Constitutional: no symptoms reported, see HPI EENTM: see HPI, no symptoms reported Respiratory: no symptoms reported, see HPI Cardiovascular: see HPI; No chest pain, No edema, No Hx of Intervention; palpitations; No syncope, No vascular heart diseas, No other Gastrointestinal: no symptoms reported, see HPI Genitourinary: no symptoms reported, see HPI Musculoskeletal: no symptoms reported, see HPI Skin: no symptoms reported, see HPI Psychiatric/Neurological: No Symptoms Reported, See HPI Reviewed Test Results Reviewed Test Results Lab Laboratory Tests Test 08/16/22 18:17 08/16/22 21:00 08/16/22 21:51 08/17/22 00:54 Range/Units White Blood Count 6.1 4.3-11.0 10^3/uL Red Blood Count 4.16 3.80-5.11 10^6/uL Hemoglobin 13.8 11.5-16.0 g/dL Hematocrit 41 35-52 % Mean Corpuscular Volume 98 80-99 fL Mean Corpuscular Hemoglobin 33 25-34 pg Mean Corpuscular Hemoglobin Concent 34 32-36 g/dL Red Cell Distribution Width 12.6 10.0-14.5 % Platelet Count 217 130-400 10^3/uL Mean Platelet Volume 9.7 9.0-12.2 fL Immature Granulocyte % (Auto) 0 % Neutrophils (%) (Auto) 46 42-75 % Lymphocytes (%) (Auto) 38 12-44 % Monocytes (%) (Auto) 13 H 0-12 % Eosinophils (%) (Auto) 3 0-10 % Basophils (%) (Auto) 1 0-10 % Neutrophils # (Auto) 2.8 1.8-7.8 10^3/uL Lymphocytes # (Auto) 2.3 1.0-4.0 10^3/uL Monocytes # (Auto) 0.8 0.0-1.0 10^3/uL Eosinophils # (Auto) 0.2 0.0-0.3 10^3/uL Basophils # (Auto) 0.0 0.0-0.1 10^3/uL Immature Granulocyte # (Auto) 0.0 0.0-0.1 10^3/uL Prothrombin Time 12.5 12.2-14.7 SEC INR Comment 0.9 0.8-1.4 Activated Partial Thromboplast Time 32 24-35 SEC Sodium Level 141 135-145 MMOL/L Potassium Level 3.3 L 3.6-5.0 MMOL/L Chloride Level 99 98-107 MMOL/L Carbon Dioxide Level 27 21-32 MMOL/L Anion Gap 15 H 5-14 MMOL/L Blood Urea Nitrogen 19 H 7-18 MG/DL Creatinine 1.40 H 0.60-1.30 MG/DL Estimat Glomerular Filtration Rate 38 BUN/Creatinine Ratio 14 Glucose Level 124 H 70-105 MG/DL Calcium Level 11.3 H 8.5-10.1 MG/DL Corrected Calcium 8.5-10.1 MG/DL Magnesium Level 1.9 1.6-2.4 MG/DL Total Bilirubin 0.5 0.1-1.0 MG/DL Aspartate Amino Transf (AST/SGOT) 14 5-34 U/L Alanine Aminotransferase (ALT/SGPT) 18 0-55 U/L Alkaline Phosphatase 94 40-136 U/L Total Creatine Kinase 27 L 29-168 U/L Creatine Kinase MB 1.4 <6.6 NG/ML Myoglobin 41.2 10.0-92.0 NG/ML Troponin I < 0.028 < 0.028 < 0.028 <0.028 NG/ML B-Type Natriuretic Peptide 104.9 H <100.0 PG/ML Total Protein 7.9 6.4-8.2 GM/DL Albumin 4.6 H 3.2-4.5 GM/DL TSH [place] Testing 4.30 0.35-4.94 UIU/ML Glucometer 132 H 70-110 MG/DL Test 08/17/22 04:05 Range/Units White Blood Count 5.4 4.3-11.0 10^3/uL Red Blood Count 3.57 L 3.80-5.11 10^6/uL Hemoglobin 11.9 11.5-16.0 g/dL Hematocrit 35 35-52 % Mean Corpuscular Volume 99 80-99 fL Mean Corpuscular Hemoglobin 33 25-34 pg Mean Corpuscular Hemoglobin Concent 34 32-36 g/dL Red Cell Distribution Width 12.7 10.0-14.5 % Platelet Count 184 130-400 10^3/uL Mean Platelet Volume 10.4 9.0-12.2 fL Immature Granulocyte % (Auto) 0 % Neutrophils (%) (Auto) 53 42-75 % Lymphocytes (%) (Auto) 27 12-44 % Monocytes (%) (Auto) 15 H 0-12 % Eosinophils (%) (Auto) 4 0-10 % Basophils (%) (Auto) 1 0-10 % Neutrophils # (Auto) 2.9 1.8-7.8 10^3/uL Lymphocytes # (Auto) 1.5 1.0-4.0 10^3/uL Monocytes # (Auto) 0.8 0.0-1.0 10^3/uL Eosinophils # (Auto) 0.2 0.0-0.3 10^3/uL Basophils # (Auto) 0.0 0.0-0.1 10^3/uL Immature Granulocyte # (Auto) 0.0 0.0-0.1 10^3/uL Sodium Level 136 135-145 MMOL/L Potassium Level 4.1 3.6-5.0 MMOL/L Chloride Level 103 98-107 MMOL/L Carbon Dioxide Level 23 21-32 MMOL/L Anion Gap 10 5-14 MMOL/L Blood Urea Nitrogen 15 7-18 MG/DL Creatinine 0.77 0.60-1.30 MG/DL Estimat Glomerular Filtration Rate 77 BUN/Creatinine Ratio 19 Glucose Level 197 H 70-105 MG/DL Calcium Level 10.0 8.5-10.1 MG/DL Corrected Calcium 10.2 H 8.5-10.1 MG/DL Phosphorus Level 2.8 2.3-4.7 MG/DL Magnesium Level 1.8 1.6-2.4 MG/DL Total Bilirubin 0.5 0.1-1.0 MG/DL Aspartate Amino Transf (AST/SGOT) 13 5-34 U/L Alanine Aminotransferase (ALT/SGPT) 15 0-55 U/L Alkaline Phosphatase 74 40-136 U/L Total Protein 6.3 L 6.4-8.2 GM/DL Albumin 3.7 3.2-4.5 GM/DL Physical Exam Physical Exam Vital Signs Vital Signs - First Documented 08/16/22 18:16 Temp 37.2 Pulse 102 Resp 22 B/P (MAP) 84/109 (101) Pulse Ox 98 O2 Delivery Room Air Capillary Refill : Less Than 3 Seconds Height, Weight, BMI Height: 5'5.00" Weight: 155lbs. 5.0oz. 70.608693mp; 23.61 BMI Method:Stated General Appearance: No Apparent Distress, WD/WN Eyes: Bilateral Eye Normal Inspection, Bilateral Eye PERRL, Bilateral Eye EOMI HEENT: PERRL/EOMI, TMs Normal, Normal ENT Inspection, Pharynx Normal, Moist Mucous Membranes Neck: Full Range of Motion, Normal Inspection, Non Tender, Supple, Carotid Bruit Respiratory: Chest Non Tender, Normal Breath Sounds, No Accessory Muscle Use, No Respiratory Distress Cardiovascular: Regular Rate, Rhythm, No Edema, No Gallop, No JVD, No Murmur, Normal Peripheral Pulses Gastrointestinal: Normal Bowel Sounds, No Organomegaly, No Pulsatile Mass, Non Tender, Soft Back: Normal Inspection, No CVA Tenderness, No Vertebral Tenderness Extremity: Normal Capillary Refill, Normal Inspection, Normal Range of Motion, Non Tender, No Calf Tenderness, No Pedal Edema Neurologic/Psychiatric: Alert, Oriented x3, No Motor/Sensory Deficits, Normal Mood/Affect Skin: Normal Color, Warm/Dry Lymphatic: No Adenopathy A/P-Cardiology Admission Diagnosis Palpitation Multifocal atrial tachycardia Coronary artery disease Hypertension Assessment/Plan Recurrent palpitation, patient has Zio patch Maintained on Toprol XL 100 mg daily. I will change the dose to 50 mg daily and stop amlodipine and add Cardizem CD 120 mg daily. Review of her twelve-lead EKG showed paroxysmal atrial tachycardia/multifocal atrial tachycardia. I did not identify any episodes of atrial fibrillation. DC Cardizem drip, evaluate 2D echo and arrange for discharge and follow-up with Dr. Vergara Coronary artery disease, had a cardiac catheterization in [address] Vergara with mild disease nonobstructive disease with normal ejection fraction, Stress test done in 2019 showing no ischemia with ejection fraction 71% History of shortness of breath and chest pain, no further episodes were reported Hypertension, monitor blood pressure after adjustment of her medication Diabetes mellitus, followed and managed by primary care physician Hyperlipidemia, maintained on statin, followed by Dr. Alfaro History of carotid stenosis, mild disease, last ultrasound was done in January 2022 History of breast cancer, followed with [facility], had lumpectomy and radiation therapy in November 2015 History of gastroesophageal reflux disease. History of appendectomy, cholecystectomy, lithotripsy INGRID EDWARDS MD Aug 17, 2022 08:36
[2022-08-17] MEDS ORDERED: CHOL100048 PO (08:40)
[2022-08-17] MEDS ORDERED: SITA50TA PO (08:40)
[2022-08-17] MEDS ORDERED: FAMO20TA5 PO (08:40)
[2022-08-17] MEDS ORDERED: POTA-179 PO (08:40)
[2022-08-17] MEDS ORDERED: ASPI-1238 PO (08:40)
[2022-08-17] MEDS ORDERED: ASCO100024 PO (08:40)
[2022-08-17] MEDS ORDERED: ALPR0.254 PO (08:40)
[2022-08-17] MEDS ORDERED: SIMV20TA26 PO (08:40)
[2022-08-17] MEDS ORDERED: FURO20TA4 PO (08:40)
[2022-08-17] MEDS ORDERED: AMLO2.5T4 PO (08:40)
[2022-08-17] MEDS ORDERED: INDA1.25 PO (08:40)
[2022-08-17] MEDS ORDERED: CYAN25003 SL (08:40)
[2022-08-17] MEDS ORDERED: MTP100TCR PO (08:40)
[2022-08-17] MEDS ORDERED: BIOT10005 PO (08:40)
[2022-08-17] MEDS ORDERED: METF-399 PO (08:40)
[2022-08-17] MEDS ORDERED: meTOproloL SUCCINATE 50 MG (TOPROL XL) TAB PO SCH (09:00)
--- NOTE | 2022-08-17 10:41 | Short Stay Summary ---
ANEESHANAIROSALBA Thibodeaux 08/17/22 1041: History of Present Illness History of Present Illness Reason for visit/HPI CC: Palpitations 81 yo F with h/o HTN, DMT2, and heart catherization presented to the ED y following abrupt onset of palpitations that evening. Pt states that she was eating dinner when her "heart started racing" prompting her to come to the ED. Pt denied any CP or SOA at the time. Initial workup was remarkable for unremarkable CXR and atrial fib with RVR and was admitted to the ICU for further workup and monitoring. Pt states that she has experienced similar, less severe, palpitations in the past and had seen her liner inserter, Dr. Vergara, on Aug [address] Vergara was monitoring the pt with a Zio XT patch and scheduled her for an ECHO (08/24) and chemical stress test (08/28). Workup in the ICU found the pt to be experiencing multifocal atrial tachycardia as opposed to atrial fib with RVR. Pt's most recent EKG on 08/17 at 9:30 showed sinus tachycardia with occasional PVCs. Pt has not had multifocal atrial tachycardia since 7:00 this morning. Pt also had a repeat CXR today that showed mild vascular congestion but otherwise no change. Today, is resting comfortably in bed eating breakfast. Pt states that she has been feeling much better and has not experienced any palpitations since being admitted. Pt has been able to eat without issue and continues to void and have BMs. Pt denies CP, SOA, nausea, vomiting, diarrhea, abd pain, at home O2, or CPAP use. PMH: HTN DMT2 Heart catherization Kidney Stones Left Breast Cancer - lumpectomy and and 33 days of radiation ending on 11/12/15 SH: Tonsilectomy (1963) Cholescytecomy (1996) Heart catherization (2013, 30% blockage) Lithotripsy for kidney stones (2011) Distal Dorsal Mucous Cyst and bone spur excision Left hand (2016) Colonoscopy (2014) Meds: Januvia 50mg Metformin HCl 1000mg BID Amlodipine 2.5mg Indapamide 1.25 mg Furosemide 20mg KCl ER 20 mEq Alprazolam .25mg prn Simavastatin 20mg Metoprolol ER 100mg Famotidine 20mg Aspirin 81mg Biotin 10,000mg Vit D- 25 mcg BID Vit B12- 2500mg Vit C 1000 mg Prolia injections every 6 months Vaccinations: Flu shot (2020) Pneumovac (2019 last one) Shingles Vaccine (2010) Moderna Vaccine and booster (last 2020) Allergies: NKDA Date of Admission Aug 16, 2022 at 19:29 Date of Discharge 08/17/22 Time Seen by Provider: 10:35 Attending Physician Karina Aflaro MD Admitting Physician Admitting Physician: Mary Gu MD Attending Physician: Mary Gu MD Consult Allergies and Home Medications Allergies Coded Allergies: No Known Drug Allergies (Unverified , 01/31/12) Patient Home Medication List Home Medication List Reviewed: Yes ALPRAZolam (ALPRAZolam) 0.25 Mg Tablet, 0.25 MG PO DAILY PRN for ANXIETY, (Reported) Entered as Reported by: MARSHA PARKER on 08/17/22839 Last Action: Reviewed Ascorbic Acid (Vitamin C) 1,000 Mg Tablet, 1,000 MG PO DAILY, (Reported) Entered as Reported by: MARSHA PARKER on 08/17/22839 Last Action: Reviewed Aspirin (Aspirin EC) 81 Mg Tablet.dr, 81 MG PO 1900, (Reported) Entered as Reported by: MARSHA PARKER on 08/17/22839 Last Action: Reviewed Biotin (Biotin) 10,000 Mcg Capsule, 10,000 MCG PO 1900, (Reported) Entered as Reported by: MARSHA PARKER on 08/17/22839 Last Action: Reviewed Cholecalciferol (Vitamin D3) (Vitamin D3) 25 Mcg (1000 Unit) Capsule, 25 MCG PO BID, (Reported) Entered as Reported by: MARSHA PARKER on 08/17/22839 Last Action: Reviewed Cyanocobalamin (Vitamin B-12) (Vitamin B-12) 2,500 Mcg Tab.subl, 2,500 MCG SL DAILY, (Reported) Entered as Reported by: MARSHA PARKER on 08/17/22839 Last Action: Reviewed Diltiazem HCl (Diltiazem 24Hr ER) 120 Mg Cap.er.24h, 120 MG PO DAILY Prescribed by: AMBER GIANG on 08/17/22 1046 Famotidine (Famotidine) 20 Mg Tablet, 20 MG PO 1900, (Reported) Entered as Reported by: MARSHA PARKER on 08/17/22839 Last Action: Reviewed Furosemide (Furosemide) 20 Mg Tablet, 20 MG PO DAILY, (Reported) Entered as Reported by: MARSHA PARKER on 08/17/22839 Last Action: Reviewed Indapamide (Indapamide) 1.25 Mg Tablet, 1.25 MG PO DAILY, (Reported) Entered as Reported by: MARSHA PARKER on 08/17/22839 Last Action: Reviewed Metformin HCl (Metformin HCl) 1,000 Mg Tablet, 500 MG PO BIDPC, (Reported) Entered as Reported by: MARSHA PARKER on 08/17/22839 Last Action: Reviewed Metoprolol Succinate (Metoprolol Succinate) 50 Mg Tab.er.24h, 50 MG PO DAILY Prescribed by: AMBER GIANG on 08/17/221045 Potassium Chloride (Potassium Chloride) 20 Meq Tab.er.prt, 20 MEQ PO DAILY, (Reported) Entered as Reported by: MARSHA PARKER on 08/17/22839 Last Action: Reviewed Simvastatin (Simvastatin) 20 Mg Tablet, 20 MG PO 1900, (Reported) Entered as Reported by: MARSHA PARKER on 08/17/22839 Last Action: Reviewed Sitagliptin Phosphate (Januvia) 50 Mg Tablet, 25 MG PO DAILY, (Reported) Entered as Reported by: MARSHA PARKER on 08/17/22839 Last Action: Reviewed Discontinued Medications Amlodipine Besylate (Norvasc) 10 Mg Tablet, 5 MG PO DAILY Discontinued Reason: No Longer Taking Prescribed by: EZRA COBIAN on 02/12/15821 Last Action: Discontinued Amlodipine Besylate (Amlodipine Besylate) 2.5 Mg Tablet, 2.5 MG PO DAILY, (Reported) Entered as Reported by: MARSHA PARKER on 08/17/22839 Last Action: Reviewed Aspirin (Wilcox Aspirin) 81 Mg Tablet.dr, 81 MG PO HS, (Reported) Discontinued Reason: No Longer Taking Entered as Reported by: BHAVNA DE SOUZA on 12/26/13814 Last Action: Discontinued Biotin/Calcium Carbonate (Biotin 800 Mcg Tablet) 1 Each Tablet, 1 EACH PO DAILY, (Reported) Discontinued Reason: No Longer Taking Entered as Reported by: EZRA COBIAN on 02/12/15821 Last Action: Discontinued Furosemide (Furosemide) 20 Mg Tablet, 1 EACH PO PRN, (Reported) Discontinued Reason: No Longer Taking Entered as Reported by: EZRA COBIAN on 02/12/15821 Last Action: Discontinued Indapamide (Indapamide) 1.25 Mg Tablet, 1.25 MG PO DAILY, (Reported) Discontinued Reason: No Longer Taking Entered as Reported by: EZRA COBIAN on 02/12/15821 Last Action: Discontinued Metformin Hcl (Metformin 500 Mg) 500 Mg Tablet, 1,000 MG PO BID, (Reported) Discontinued Reason: No Longer Taking Entered as Reported by: BHAVNA DE SOUZA on 12/26/13 0809 Last Action: Discontinued Metoprolol Succinate (Metoprolol Succinate Xl 100 Mg) 100 Mg Tab.sr.24h, 100 MG PO DAILY Discontinued Reason: No Longer Taking Prescribed by: DARRYL AHMADI on 12/27/13745 Last Action: Discontinued Metoprolol Succinate (Metoprolol Succinate) 100 Mg Tab.er.24h, 1,000 MG PO 1900, (Reported) Entered as Reported by: MARSHA PARKER on 08/17/22 0840 Last Action: Reviewed Pantoprazole Sodium (Protonix) 40 Mg Tablet.dr, 40 MG PO DAILY@0700 Discontinued Reason: No Longer Taking Prescribed by: DARRYL AHMADI on 12/27/13745 Last Action: Discontinued Simvastatin (Simvastatin) 20 Mg Tablet, 20 MG PO HS, (Reported) Discontinued Reason: No Longer Taking Entered as Reported by: OBINNA BILLINGS on 01/31/12 0506 Last Action: Discontinued [Chlor Zeb Prn] Discontinued Reason: No Longer Taking Prescribed by: EZRA SANDRAPRAVEEN on 02/12/15821 Last Action: Discontinued Past Elczrlh-Jiiobm-[id number] Hx Patient Social History Marrital Status: Employed/Student: retired Have you traveled recently?: No Alcohol Use?: No Pt feels they are or have been: No Immunizations Up To Date Tetanus Booster (TDap): Unknown Date of Pneumonia Vaccine: Nov 01, 2007 Date of Influenza Vaccine: Aug 01, 2013 Surgeries Abdominal (cholecystectomy ), Breast (left lumpectomy), Cardiac (catherization), Gallbladder, Tonsillectomy Respiratory No Currently Using CPAP: No Cardiovascular Hypertension, Palpitations Reproductive System Hx Reproductive Disorders: No Genitourinary Kidney Stones Gastrointestinal Gall Bladder Disease Endocrine Endocrine Disorders: Diabetes, Non-Insulin dep HEENT HEENT Disorders: Cataract Cancer Skin Family Medical History Family Hx: Cancer 03 MOTHER, Onset:60 years & older Cancer of colon FAM HX-OTH KIDNEY DISEASES Kidney disease 03 MOTHER, Onset:60 years & older Stroke 03 FATHER, Onset:60 years & older 03 MOTHER, Onset:60 years & older Review of Systems Constitutional: No chills, No diaphoresis, No dizziness, No fever EENTM: No hearing loss, No ear pain, No blurred vision Respiratory: No cough, No dyspnea on exertion, No short of breath Cardiovascular: No chest pain, No edema, No palpitations Gastrointestinal: No abdominal pain, No diarrhea, No nausea, No vomiting Genitourinary: No decreased output, No discharge Musculoskeletal: No back pain, No joint pain Skin: No change in color, No change in hair/nails Psychiatric/Neurological: Denies Anxiety, Denies Depressed All Other Systems Reviewed Negative Unless Noted: Yes Physical Exam Vital Signs Vital Signs - First Documented 08/16/22 18:16 Temp 37.2 Pulse 102 Resp 22 B/P (MAP) 84/109 (101) Pulse Ox 98 O2 Delivery Room Air Capillary Refill : Less Than 3 Seconds Height, Weight, BMI Height: 5'5.00" Weight: 155lbs. 5.0oz. 70.206928il; 23.61 BMI Method:Stated General Appearance: No Apparent Distress, WD/WN HEENT: PERRL/EOMI, Moist Mucous Membranes Neck: Normal Inspection, Supple Respiratory: Chest Non Tender, Lungs Clear, Normal Breath Sounds, No Accessory Muscle Use Cardiovascular: Regular Rate, Rhythm, No Edema, No Murmur Gastrointestinal: No Organomegaly, Non Tender, Soft Back: Normal Inspection, No Vertebral Tenderness Extremity: Normal Inspection, No Calf Tenderness, No Pedal Edema Neurologic/Psychiatric: Alert, Oriented x3 Skin: Normal Color, Warm/Dry Lymphatic: No Adenopathy Short Stay Diagnosis Discharge Diagnosis-Short Stay Admission Diagnosis: Atrial Fib with RVR Final Discharge Diagnosis: Multifocal atrial tachycardia Conclusion Labs Laboratory Tests 08/16/22 18:17: White Blood Count 6.1, Red Blood Count 4.16, Hemoglobin 13.8, Hematocrit 41, Mean Corpuscular Volume 98, Mean Corpuscular Hemoglobin 33, Mean Corpuscular Hemoglobin Concent 34, Red Cell Distribution Width 12.6, Platelet Count 217, Mean Platelet Volume 9.7, Immature Granulocyte % (Auto) 0, Neutrophils (%) (Auto) 46, Lymphocytes (%) (Auto) 38, Monocytes (%) (Auto) 13H, Eosinophils (%) (Auto) 3, Basophils (%) (Auto) 1, Neutrophils # (Auto) 2.8, Lymphocytes # (Auto) 2.3, Monocytes # (Auto) 0.8, Eosinophils # (Auto) 0.2, Basophils # (Auto) 0.0, Immature Granulocyte # (Auto) 0.0, Prothrombin Time 12.5, INR Comment 0.9, Activated Partial Thromboplast Time 32, Sodium Level 141, Potassium Level 3.3L, Chloride Level 99, Carbon Dioxide Level 27, Anion Gap 15H, Blood Urea Nitrogen 19H, Creatinine 1.40H, Estimat Glomerular Filtration Rate 38, BUN/Creatinine Ratio 14, Glucose Level 124H, Calcium Level 11.3H, Corrected Calcium , Magnesium Level 1.9, Total Bilirubin 0.5, Aspartate Amino Transf (AST/SGOT) 14, Alanine Aminotransferase (ALT/SGPT) 18, Alkaline Phosphatase 94, Total Creatine Kinase 27L, Creatine Kinase MB 1.4, Myoglobin 41.2, Troponin I < 0.028, B-Type Natriuretic Peptide 104.9H, Total Protein 7.9, Albumin 4.6H, TSH Knott Testing 4.30 08/16/22 21:00: Glucometer 132H 08/16/22 21:51: Troponin I < 0.028 08/17/22 00:54: Troponin I < 0.028 08/17/22 04:05: White Blood Count 5.4, Red Blood Count 3.57L, Hemoglobin 11.9, Hematocrit 35, Mean Corpuscular Volume 99, Mean Corpuscular Hemoglobin 33, Mean Corpuscular Hemoglobin Concent 34, Red Cell Distribution Width 12.7, Platelet Count 184, Mean Platelet Volume 10.4, Immature Granulocyte % (Auto) 0, Neutrophils (%) (Auto) 53, Lymphocytes (%) (Auto) 27, Monocytes (%) (Auto) 15H, Eosinophils (%) (Auto) 4, Basophils (%) (Auto) 1, Neutrophils # (Auto) 2.9, Lymphocytes # (Auto) 1.5, Monocytes # (Auto) 0.8, Eosinophils # (Auto) 0.2, Basophils # (Auto) 0.0, Immature Granulocyte # (Auto) 0.0, Sodium Level 136, Potassium Level 4.1, Chloride Level 103, Carbon Dioxide Level 23, Anion Gap 10, Blood Urea Nitrogen 15, Creatinine 0.77, Estimat Glomerular Filtration Rate 77, BUN/Creatinine Ratio 19, Glucose Level 197H, Calcium Level 10.0, Corrected Calcium 10.2H, Phosphorus Level 2.8, Magnesium Level 1.8, Total Bilirubin 0.5, Aspartate Amino Transf (AST/SGOT) 13, Alanine Aminotransferase (ALT/SGPT) 15, Alkaline Phosphatase 74, Total Protein 6.3L, Albumin 3.7 Conclusion/Plan 1. Multifocal Atrial Tachycardia -resolved, has appointments with liner inserter later this month for ECHO and stress test 2. HTN -managed by Dr. Vergara 3. DMT2 -controlled with metformin at home Plan: Pt was cleared by cardiology, will have PT ambulate then DC home with instructions to follow up with Dr. Alfaro and liner inserter AMBER GIANG DO 08/18/22 0520: History of Present Illness History of Present Illness Reason for visit/HPI CC: Palpitations HPI: This is an 81yoWF clinic patient of Dr Alfaro whom I am covering for in her absence who presented to the ER with palpitations and was evaluated to have AF RVR. John nelson initiated and Cardiology consulted and assessed it to be multi-focal atrial tachycardia so meds were adjusted and her heart rate was improved and PT was able to evaluate her function and found her ready for DC with close f/u with Dr Vergara. Date of Admission 08/16/22 Date of Discharge 08/17/2022 Time Seen by Provider: 09:30 Allergies and Home Medications Allergies Coded Allergies: No Known Drug Allergies (Unverified , 01/31/12) Patient Home Medication List Home Medication List Reviewed: Yes ALPRAZolam (ALPRAZolam) 0.25 Mg Tablet, 0.25 MG PO DAILY PRN for ANXIETY, (Reported) Entered as Reported by: MARSHA PARKER on 08/17/2240 Last Action: Reviewed Ascorbic Acid (Vitamin C) 1,000 Mg Tablet, 1,000 MG PO DAILY, (Reported) Entered as Reported by: MARSHA PARKER on 08/17/22839 Last Action: Reviewed Aspirin (Aspirin EC) 81 Mg Tablet.dr, 81 MG PO 1900, (Reported) Entered as Reported by: MARSHA PARKER on 08/17/22839 Last Action: Reviewed Biotin (Biotin) 10,000 Mcg Capsule, 10,000 MCG PO 1900, (Reported) Entered as Reported by: MARSHA PARKER on 08/17/22839 Last Action: Reviewed Cholecalciferol (Vitamin D3) (Vitamin D3) 25 Mcg (1000 Unit) Capsule, 25 MCG PO BID, (Reported) Entered as Reported by: MARSHA PARKER on 08/17/22839 Last Action: Reviewed Cyanocobalamin (Vitamin B-12) (Vitamin B-12) 2,500 Mcg Tab.subl, 2,500 MCG SL DAILY, (Reported) Entered as Reported by: MARSHA PARKER on 08/17/22839 Last Action: Reviewed Diltiazem HCl (Diltiazem 24Hr ER) 120 Mg Cap.er.24h, 120 MG PO DAILY Prescribed by: AMBER GIANG on 08/17/22 104 Famotidine (Famotidine) 20 Mg Tablet, 20 MG PO 1900, (Reported) Entered as Reported by: MARSHA PARKER on 08/17/22839 Last Action: Reviewed Furosemide (Furosemide) 20 Mg Tablet, 20 MG PO DAILY, (Reported) Entered as Reported by: MARSHA PARKER on 08/17/22839 Last Action: Reviewed Indapamide (Indapamide) 1.25 Mg Tablet, 1.25 MG PO DAILY, (Reported) Entered as Reported by: MARSHA PARKER on 08/17/22839 Last Action: Reviewed Metformin HCl (Metformin HCl) 1,000 Mg Tablet, 500 MG PO BIDPC, (Reported) Entered as Reported by: MARSHA PARKER on 08/17/22839 Last Action: Reviewed Metoprolol Succinate (Metoprolol Succinate) 50 Mg Tab.er.24h, 50 MG PO DAILY Prescribed by: AMBER GIANG on 08/17/22 104 Potassium Chloride (Potassium Chloride) 20 Meq Tab.er.prt, 20 MEQ PO DAILY, (Reported) Entered as Reported by: MARSHA PARKER on 08/17/22839 Last Action: Reviewed Simvastatin (Simvastatin) 20 Mg Tablet, 20 MG PO 1900, (Reported) Entered as Reported by: MARSHA PARKER on 08/17/22839 Last Action: Reviewed Sitagliptin Phosphate (Januvia) 50 Mg Tablet, 25 MG PO DAILY, (Reported) Entered as Reported by: MARSHA PARKER on 08/17/22839 Last Action: Reviewed Discontinued Medications Amlodipine Besylate (Norvasc) 10 Mg Tablet, 5 MG PO DAILY Discontinued Reason: No Longer Taking Prescribed by: EZRA COBIAN on 02/12/15821 Last Action: Discontinued Amlodipine Besylate (Amlodipine Besylate) 2.5 Mg Tablet, 2.5 MG PO DAILY, (Reported) Entered as Reported by: MARSHA PARKER on 08/17/22839 Last Action: Reviewed Aspirin (Wilcox Aspirin) 81 Mg Tablet.dr, 81 MG PO HS, (Reported) Discontinued Reason: No Longer Taking Entered as Reported by: BHAVNA DE SOUZA on 12/26/13814 Last Action: Discontinued Biotin/Calcium Carbonate (Biotin 800 Mcg Tablet) 1 Each Tablet, 1 EACH PO DAILY, (Reported) Discontinued Reason: No Longer Taking Entered as Reported by: EZRA COBIAN on 02/12/15821 Last Action: Discontinued Furosemide (Furosemide) 20 Mg Tablet, 1 EACH PO PRN, (Reported) Discontinued Reason: No Longer Taking Entered as Reported by: EZRA COBIAN on 02/12/15821 Last Action: Discontinued Indapamide (Indapamide) 1.25 Mg Tablet, 1.25 MG PO DAILY, (Reported) Discontinued Reason: No Longer Taking Entered as Reported by: EZRA COBIAN on 02/12/15821 Last Action: Discontinued Metformin Hcl (Metformin 500 Mg) 500 Mg Tablet, 1,000 MG PO BID, (Reported) Discontinued Reason: No Longer Taking Entered as Reported by: BHAVNA DE SOUZA on 12/26/13808 Last Action: Discontinued Metoprolol Succinate (Metoprolol Succinate Xl 100 Mg) 100 Mg Tab.sr.24h, 100 MG PO DAILY Discontinued Reason: No Longer Taking Prescribed by: DARRYL AHMADI on 12/27/13 0746 Last Action: Discontinued Metoprolol Succinate (Metoprolol Succinate) 100 Mg Tab.er.24h, 1,000 MG PO 1900, (Reported) Entered as Reported by: MARSHA PARKER on 08/17/22 0840 Last Action: Reviewed Pantoprazole Sodium (Protonix) 40 Mg Tablet., 40 MG PO DAILY@0700 Discontinued Reason: No Longer Taking Prescribed by: DARRYL AHMADI on 12/27/13 0746 Last Action: Discontinued Simvastatin (Simvastatin) 20 Mg Tablet, 20 MG PO HS, (Reported) Discontinued Reason: No Longer Taking Entered as Reported by: OBINNA BILLINGS on 01/31/12 0506 Last Action: Discontinued [Chlor Zeb Prn] Discontinued Reason: No Longer Taking Prescribed by: EZRA COBIAN on 02/12/15 0822 Last Action: Discontinued Past Ohtbpzi-Admysz-Zhxiii Hx Patient Social History Marrital Status: Employed/Student: retired Smoking Status: Never a Smoker Cardiovascular High Cholesterol, Hypertension Musculoskeletal Arthritis Family Medical History Family Hx: Cancer 03 MOTHER, Onset:60 years & older Cancer of colon FAM HX-OTH KIDNEY DISEASES Kidney disease 03 MOTHER, Onset:60 years & older Stroke 03 FATHER, Onset:60 years & older 03 MOTHER, Onset:60 years & older Review of Systems Constitutional: see HPI, malaise, weakness EENTM: no symptoms reported Respiratory: dyspnea on exertion Cardiovascular: palpitations Gastrointestinal: no symptoms reported Genitourinary: no symptoms reported Musculoskeletal: no symptoms reported Skin: no symptoms reported Psychiatric/Neurological: No Symptoms Reported All Other Systems Reviewed Negative Unless Noted: Yes Physical Exam General Appearance: No Apparent Distress, WD/WN, Chronically ill, Thin, Other (frail) Eyes: Bilateral Eye Normal Inspection, Bilateral Eye PERRL, Bilateral Eye EOMI HEENT: PERRL/EOMI, Normal ENT Inspection, Pharynx Normal Neck: Full Range of Motion, Normal Inspection, Non Tender, Supple, Carotid Bruit Respiratory: Chest Non Tender, Lungs Clear, Normal Breath Sounds, No Accessory Muscle Use, No Respiratory Distress Cardiovascular: Regular Rate, Rhythm, No Edema, No Gallop, No JVD, No Murmur, Normal Peripheral Pulses, Tachycardia Gastrointestinal: Normal Bowel Sounds, No Organomegaly, No Pulsatile Mass, Non Tender, Soft Back: Normal Inspection, No CVA Tenderness, No Vertebral Tenderness Extremity: Normal Capillary Refill, Normal Inspection, Normal Range of Motion, Non Tender, No Calf Tenderness, No Pedal Edema Neurologic/Psychiatric: Alert, Oriented x3, No Motor/Sensory Deficits, Normal Mood/Affect Skin: Normal Color, Warm/Dry Lymphatic: No Adenopathy Short Stay Diagnosis Discharge Diagnosis-Short Stay Admission Diagnosis: AF RVR Palpitations Final Discharge Diagnosis: Multi-focal atrial tachycardia Conclusion Conclusion/Plan DC home Med changes made by Cardiology Supervisory-Addendum Brief Verification & Attestation Participated in pt care: history, MDM, physical Personally performed: exam, history, MDM, supervision of care Care discussed with: Medical Student Procedures: n/a Results interpretation: Verified all documentation Verification and Attestation of Medical Student E/M Service A medical student performed and documented this service in my presence. I reviewed and verified all information documented by the medical student and made modifications to such information, when appropriate. I personally performed the physical exam and medical decision making. Amber Giang Aug 18, 2022,05:17 ROSALBA GUERRERO Aug 17, 2022 10:41 AMBER GIANG DO Aug 18, 2022 05:20
[2022-08-17] MEDS ORDERED: METO50TA7 PO (10:46)
[2022-08-17] MEDS ORDERED: DILT-27 PO (10:46)
--- NOTE | 2022-08-17 11:53 | Physical Therapy Evaluation ---
PT Evaluation-General Medical Diagnosis Admission Date Aug 16, 2022 at 19:29 Medical Diagnosis: afib with RVR Onset Date: Aug 16, 2022 Therapy Diagnosis Therapy Diagnosis: impaired mobility Height/Weight Height (Feet): 5 Height (Inches): 5.00 Weight (Pounds): 155 Weight (Ounces): 5.0 Precautions Precautions/Isolations: Fall Prevention, Standard Precautions Referral Physician: Amber Jay DO Reason for Referral: Evaluation/Treatment Medical History Additional Medical History Past Medical History Reproductive Disorders: No Kidney Stones Gall Bladder Disease Diabetes, Non-Insulin dep Cataract Skin Reviewed History: Yes Social History Current Living Status: Spouse Entry Into Home: Stairs With Railing PT Steps Into Home: 2 Prior Prior Level of Function SCALE: Activities may be completed with or without assistive devices. 0-Ugxguqkjdr-fhsqmwt completes the activity by him/herself with no assistance from a helper. 5-Set-up or Clean-up Assistance-helper sets up or cleans up; patient completes activity. [place] assists only prior to or following the activity. 4-Supervision or Touching Assistance-helper provides verbal cues and/or touc kathi/steadying and/or contact guard assistance as patient completes activity. Assistance may be provided throughout the activity or intermittently. 3-Partial/Moderate Assistance-helper does LESS THAN HALF the effort. [place] lifts, holds or supports trunk or limbs, but provides less than half the effort. 2-Substantial/Maximal Assistance-helper does MORE THAN HALF the effort. [place] lifts or holds trunk or limbs and provides more than half the effort. 8-Hwvsldlpe-avivic does ALL the effort. Patient does none of the effort to complete the activity. Or, the assistance of 2 or more helpers is required for the patient to complete the activity. If activity was not attempted, code reason: 7-Patient Refused. 9-Not Applicable-not attempted and the patient did not perform the activity before the current illness, exacerbation or injury. 10-Not Attempted due to Environmental Limitations-(lack of equipment, weather restraints, etc.). 88-Not Attempted due to Medical Conditions or Safety Concerns. Bed Mobility: 6 Transfers (B,C,W/C): 6 Gait: 6 Stairs: 6 Indoor Mobility (Ambulation): Independent Stairs: Independent PT Evaluation-Current Subjective Patient in bed pre tx, agrees to PT, has no complaints of pain but states she is slightly nauseated. Pt/Family Goals to be independent at home Objective Patient Orientation: Person, Place, Situation Attachments: IV ROM/Strength ROM Lower Extremities WNL Strength Lower Extremities LLE (hip flexion 3+/5, knee flexion 4+/5, knee extension 4+/5, dorsiflexion 4+/5), RLE (hip flexion 3+/5, knee flexion 4/5, knee extension 4/5, dorsiflexion 4+/5) Sensory Vision: Wears Glasses Sensation Right Lower Extremit: Intact Sensation Left Lower Extremity: Intact Transfers Roll Left to Right (QC): 6 Lying to Sitting/Side of Bed(Q: 6 Sit to Stand (QC): 4 Chair/Uam-sz-Zibpl Xfer(QC): 4 CGA for sit to stand and transfers, patient slightly unsteady when standing but no LOB Gait Does the Patient Walk?: Yes Mode of Locomotion: Walk Anticipated Mode of Locomotion: Walk Walk 10 feet (QC): 4 Walk 50 ft with 2 Turns(QC): 4 Walk 150 ft (QC): 4 Distance: 150' Gait Assistive Device: FWW Comments/Gait Description CGA with rolling walker, slightly unsteady with turning Balance Sitting Static: Normal Sitting Dynamic: Normal Standing Static: Fair Standing Dynamic: Fair Assessment/Needs Patient in recliner post tx with nurse call, phone, tray, all needs met. Patient has impaired mobility and some unsteadiness with standing and ambulation, recommend rolling walker for ambulation. Rehab Potential: Fair PT Education Officer Goals Education Officer Goals PT Education Officer Goals Time Frame: Aug 24, 2022 Roll Left & Right (QC): 6 Sit to Lying (QC): 6 Lying-Sitting on Side/Bed(QC): 6 Sit to Stand (QC): 6 Chair/Kkx-uf-Snctb Xfer(QC): 6 Walk 10 feet (QC): 6 Walk 50ft with 2 Turns (QC): 6 Walk 150 ft (QC): 6 PT Plan Problem List Problem List: Activity Tolerance, Functional Strength, Safety, Balance, Gait, Transfer, ROM Treatment/Plan Treatment Plan: Continue Plan of Care Treatment Plan: Education, Functional Activity Kiana, Functional Strength, Gait, Safety, Therapeutic Exercise, Transfers Treatment Duration: Aug 24, 2022 Frequency: 6 times per week Estimated Hrs Per Day: .25 hour per day Patient and/or Family Agrees t: Yes Safety Risks/Education Patient Education: Gait Training, Transfer Techniques, Correct Positioning, Safety Issues Teaching Recipient: Patient Teaching Methods: Demonstration, Discussion Response to Teaching: Reinforcement Needed Discharge Recommendations Plan Patient will perform bed mobility and transfer training, balance and endurance training, functional strengthening, stair training, gait training, and education, to improve functional mobility and independence at home. Therapy Discharge Recommendati: Home & Family, Post Acute PT Time/GCodes Time In: 1130 Time Out: 1141 Total Billed Treatment Time: 11 Total Billed Treatment 1 visit EVL 11' SILVIA ARRIETA PT Aug 17, 2022 11:53
[2022-08-18] MEDS ORDERED: dilTIAZem120 MG (CARDIZEM CD) CAP PO SCH (09:00)
== END 2022-08-17 12:20 | disposition home or self-care (01) | DRG 310 ==
LOC: EDUNIT# 18:12 → ER 18:14 → ICU 19:29
PROVIDERS: ADMIT Internal Medicine; ATTEND Internal Medicine
DX: I47.1 Supraventricular tachycardia (principal); I10 Essential (primary) hypertension; E11.9 Type 2 diabetes mellitus without complications; I25.10 Atherosclerotic heart disease of native coronary artery without angina pectoris; E78.5 Hyperlipidemia, unspecified; I65.29 Occlusion and stenosis of unspecified carotid artery; K21.9 Gastro-esophageal reflux disease without esophagitis; I34.0 Nonrheumatic mitral (valve) insufficiency; Z79.899 Other long term (current) drug therapy; Z79.84 Long term (current) use of oral hypoglycemic drugs; Z85.3 Personal history of malignant neoplasm of breast
CPT/HCPCS: 36415; 71045; 80053; 82550; 82553; 82947; 83735; 83874; 83880; 84100; 84443; 84484; 85025; 85610; 85730; 87081; 93005; 93041; 93306

== ENCOUNTER → 2022-08-28 | Outpatient (CLI) | payer MEDICARE ==
[~2022-08-28] MED LIST changes: +ALPR0.254 PO; +AMLO2.5T4 PO; +ASCO100024 PO; +ASPI-1238 PO; +BIOT10005 PO; +CATHETER FLUSH 10 ML SYR IVP PRN; +CHOL100048 PO; +CYAN25003 SL; +DILT-27 PO; +FAMO20TA5 PO; +METF-399 PO; +METO50TA7 PO; +MTP100TCR PO; +POTA-179 PO; +REGADENOSON 0.4 MG/5 ML SYR (LEXISCAN) IV ONE; +SIMV20TA26 PO; +SITA50TA PO
[2022-08-28 08:36] VITALS: BP 157/90
== END ==
LOC: CARD 08:00
PROVIDERS: ATTEND Nurse Practitioner Family
DX: R07.89 Other chest pain (principal)
CPT/HCPCS: 78452; 93017; A9502

== ENCOUNTER → 2023-08-12 | Outpatient (CLI) | payer MEDICARE ==
[~2023-08-12] MED LIST changes: -CATHETER FLUSH 10 ML SYR IVP PRN; -REGADENOSON 0.4 MG/5 ML SYR (LEXISCAN) IV ONE
--- NOTE | 2023-08-12 17:04 | Diagnostic Imaging Report ---
3D bilateral screening mammogram. 2-D and 3-D bilateral screening mammography was performed with CAD. COMPARISON: This study was compared to the prior exams of 08/04/2022, 07/30/2021 and 05/02/2019. There are no current complaints. The fibroglandular tissue in both breasts is heterogeneously dense. This does limit the sensitivity of this exam. When compared to the previous study there does not appear to have been any significant change. Benign-appearing calcifications are again seen in both breasts, particularly the left breast. Surgical clips in the left breast are also again identified. There is no primary or secondary sign of malignancy noted. IMPRESSION: There is no evidence for malignancy. BI-RADS CATEGORY: 1 NEGATIVE ACR BI-RADS Category 1: Negative. Result letter will be mailed to the patient. Note: At least 10% of breast cancer is not imaged by mammography. Dictated by: Dictated on workstation # [id number]
== END ==
LOC: RAD 07:52
PROVIDERS: ATTEND Family Medicine
DX: Z12.31 Encounter for screening mammogram for malignant neoplasm of breast (principal)
CPT/HCPCS: 77063; 77067

== ENCOUNTER 2023-09-05 15:55 | Emergency (ER) | payer MEDICARE ==
[~2023-09-05] VITALS: Ht 165.1 cm; Wt 67.3 kg
[2023-09-05] MEDS ORDERED: LIDOCAINE 4% PATCH TOP ONE (16:30)
[2023-09-05] MEDS ORDERED: KETOROLAC INJ 30 MG/ML VIAL IM ONE (16:30)
[2023-09-05] MEDS ORDERED: ORPHENADRINE 60 MG/2 ML AMP (ED ONLY) IM ONE (16:30)
[2023-09-05] MEDS ORDERED: dexAMETHasone INJ 10 MG/ML 1 ML VIAL IM ONE (16:30)
--- NOTE | 2023-09-05 16:34 | ED Back Pain ---
General Chief Complaint: Back Problems Stated Complaint: BACK AND LOWER LEG PAIN Nursing Triage Note: pt states lower back pain for a few weeks that radiates into right thigh. was seen at dr camacho office wednesday and given a shot that did not help. was given 2 rounds of prednisone 3 weeks ago that did not help Source of Information: Patient Exam Limitations: No Limitations (LIDA EAST APRN) History of Present Illness Date Seen by Provider: Sep 05, 2023 Time Seen by Provider: 16:19 Initial Comments 82-year-old female presents to the ER with complaint of lower back pain that radiates down her right leg into her right anterior thigh. She reports she has had this pain for more than a month. She states that the pain fluctuates in intensity. Denies any injury, denies falls, denies recent car accident. She denies fevers, saddle paresthesia, bowel or bladder incontinence. She reports that she has been walking with a cane due to pain. She has been seen by her primary care provider and was on 2 rounds of prednisone and also prescribed cyclobenzaprine. Last round of prednisone was approximately 3 weeks ago. She reports that she received an injection in the office, but is uncertain what medication she received. (LIDA EAST APRN) Allergies and Home Medications Allergies Coded Allergies: No Known Drug Allergies (Unverified , 01/31/12) Patient Home Medication List Home Medication List Reviewed: Yes (LIDA EAST APRN) ALPRAZolam (ALPRAZolam) 0.25 Mg Tablet, 0.25 MG PO DAILY PRN for ANXIETY, (Reported) Entered as Reported by: MARSHA PARKER on 08/17/22 08 Ascorbic Acid (Vitamin C) 1,000 Mg Tablet, 1,000 MG PO DAILY, (Reported) Entered as Reported by: MARSHA PARKER on 08/17/22 08 Aspirin (Aspirin EC) 81 Mg Tablet., 81 MG PO 1900, (Reported) Entered as Reported by: MARSHA PARKER on 08/17/22 08 Biotin (Biotin) 10,000 Mcg Capsule, 10,000 MCG PO 1900, (Reported) Entered as Reported by: MARSHA PARKER on 08/17/22 08 Cholecalciferol (Vitamin D3) (Vitamin D3) 25 Mcg (1000 Unit) Capsule, 25 MCG PO BID, (Reported) Entered as Reported by: MARSHA PARKER on 08/17/22839 Cyanocobalamin (Vitamin B-12) (Vitamin B-12) 2,500 Mcg Tab.subl, 2,500 MCG SL DAILY, (Reported) Entered as Reported by: MARSHA PARKER on 08/17/22839 Diltiazem HCl (Diltiazem 24Hr ER) 120 Mg Cap.er.24h, 120 MG PO DAILY Prescribed by: BALDEMAR GIANG on 08/17/221045 Famotidine (Famotidine) 20 Mg Tablet, 20 MG PO 1900, (Reported) Entered as Reported by: MARSHA PARKER on 08/17/22839 Furosemide (Furosemide) 20 Mg Tablet, 20 MG PO DAILY, (Reported) Entered as Reported by: MARSHA PARKER on 08/17/22839 Indapamide (Indapamide) 1.25 Mg Tablet, 1.25 MG PO DAILY, (Reported) Entered as Reported by: MARSHA PARKER on 08/17/22839 Lidocaine (Lidocaine) 4 % Adh..patch, 1 EACH TP DAILY Prescribed by: Lida Giraldo on 09/05/231748 Metformin HCl (Metformin HCl) 1,000 Mg Tablet, 500 MG PO BIDPC, (Reported) Entered as Reported by: MARSHA PARKER on 08/17/22839 Methylprednisolone (Methylprednisolone Dose Pack) 4 Mg Tab.ds.pk, 4 MG PO UD Prescribed by: Lida Giraldo on 09/05/231748 Metoprolol Succinate (Metoprolol Succinate) 50 Mg Tab.er.24h, 50 MG PO DAILY Prescribed by: BALDEMAR GIANG on 08/17/221045 Potassium Chloride (Potassium Chloride) 20 Meq Tab.er.prt, 20 MEQ PO DAILY, (Reported) Entered as Reported by: MARSHA PARKER on 08/17/22839 Simvastatin (Simvastatin) 20 Mg Tablet, 20 MG PO 1900, (Reported) Entered as Reported by: MARSHA PARKER on 08/17/22839 Sitagliptin Phosphate (Januvia) 50 Mg Tablet, 25 MG PO DAILY, (Reported) Entered as Reported by: MARSHA PARKER on 08/17/22839 Review of Systems Constitutional: see HPI (LIDA EAST APRN) Past Vxnmuka-Kwqwzb-Luyyzz Hx Patient Social History Tobacco Use?: No Substance use?: No Alcohol Use?: No (LIDA EAST APRN) Immunizations Up To Date Tetanus Booster (TDap): Unknown First/Initial COVID19 Vaccinat: 2020 Second COVID19 Vaccination Todd: 2020 Third COVID19 Vaccination Date: 2021 (LIDA EAST APRN) Past Medical History Surgery/Hospitalization HX: dm, htn Abdominal, Breast, Cardiac, Gallbladder, Tonsillectomy Respiratory: No Currently Using CPAP: No High Cholesterol, Hypertension Reproductive Disorders: No Kidney Stones Gall Bladder Disease Arthritis Diabetes, Non-Insulin dep Cataract Skin (LIDA EAST APRN) Family Medical History Cancer 03 MOTHER, Onset:60 years & older Cancer of colon FAM HX-OTH KIDNEY DISEASES Kidney disease 03 MOTHER, Onset:60 years & older Stroke 03 FATHER, Onset:60 years & older 03 MOTHER, Onset:60 years & older Physical Exam Vital Signs Vital Signs - First Documented 09/05/23 16:11 Temp 36.1 Pulse 66 Resp 16 B/P (MAP) 161/89 (113) Pulse Ox 100 (TEODORO TEJADA MD) Vital Signs Capillary Refill : (LIDA EAST APRN) Height, Weight, BMI Height: 5'5.00" Weight: 155lbs. 5.0oz. 70.529503ym; 24.00 BMI Method:Stated General Appearance: No Apparent Distress, WD/WN Neck: Normal Inspection, Supple Cardiovascular: Regular Rate, Rhythm Respiratory: Lungs Clear, Normal Breath Sounds, No Accessory Muscle Use, No Respiratory Distress Back: No Vertebral Tenderness; Other (Muscle tenderness right lower back/upper gluteus) Extremity: Normal Inspection, Normal Range of Motion, Other (Tenderness in right hip, bilateral lower extremity strength equal and strong) Neurologic/Psychiatric: Alert, No Motor/Sensory Deficits, Normal Mood/Affect Skin: Normal Color, Warm/Dry (LIDA EAST APRN) Progress/Results/Core Measures Results/Orders Vital Signs/I&O 09/05/23 09/05/23 16:11 18:03 Temp 36.1 36.1 Pulse 66 66 Resp 16 16 B/P (MAP) 161/89 (113) 161/89 Pulse Ox 100 100 (TEODORO TEJADA MD) Blood Pressure Mean: 113 Progress Progress Note : Progress Note Patient seen and evaluated, resting comfortably in bed, no acute distress. Based on exam and symptoms, this is likely sciatic nerve pain. Patient is requesting imaging. CT of the lumbar spine and pelvic with right hip x-rays ordered. Toradol, Norflex, Decadron, and lidocaine patch ordered. 1746 imaging reviewed. X-ray shows no acute osseous abnormality. Lumbar CT shows degenerative changes of the lumbar spine without acute osseous abnormality. Also shows likely moderate to severe central canal and severe right neuroforaminal stenosis at L4-L5. Results discussed with patient and . Will discharge with Medrol Dosepak and lidocaine patches. She already has a cyclobenzaprine prescription at home. Patient instructed to follow-up with primary care provider. Patient is stable for discharge. Discharge instructions and return precautions provided. (LIDA EAST APRN) Diagnostic Imaging Diagonstic Imaging: Xray Plain Films/CT/US/NM/MRI: pelvis, hip Comments [facility] [place] NAME: EUGENEBRANDI Myla [facility] REC#: [id number] PT STATUS: REG ER : 08[birth year]30[birth year]2002 PHYSICIAN: LIDA EAST APRN ADMIT DATE: 09/05/23/ER Signed Date of Exam:09/05/23 CHEST 1 VIEW, AP/PA ONLY EXAMINATION: Chest, 1 view. HISTORY: Chest pain. COMPARISON: None available. FINDINGS: Heart size and pulmonary vasculature are normal. The lungs are clear without consolidation, pleural effusion, or pneumothorax. The osseous structures are intact. IMPRESSION: No acute radiographic abnormality in the chest. Dictated by: Dictated on workstation # [id number] Dict: 09/05/231701 Trans: 09/05/231713 [id number] Interpreted by: DORA HAAS DO Electronically signed by: DORA HAAS DO 09/05/234 Diagonstic Imaging: CT Plain Films/CT/US/NM/MRI: other (lumbar spine) Comments [facility] [place] NAME: BLAZE LUNA [facility] REC#: [id number] PT STATUS: REG ER : 1940 PHYSICIAN: LIDA EAST APRN ADMIT DATE: 09/05/23/ER Signed Date of Exam:09/05/23 CT LUMBAR SPINE WO EXAMINATION: CT lumbar spine without contrast. TECHNIQUE: Multiple contiguous axial images were obtained through the lumbar spine without the use of intravenous contrast. Sagittal and coronal reformations were then performed. All CT scans use one or more of the following dose optimizing techniques: automated exposure control, MA and/or KvP adjustment based on patient size and exam type or iterative reconstruction. HISTORY: Lower back pain. COMPARISON: None available. FINDINGS: Grade 1 anterolisthesis of L4 on L5. Minimal levocurvature of the lumbar spine centered at L3. Vertebral body heights are normal and no fracture is seen. Mild multilevel facet hypertrophy. Mild disc height loss at L4-L5. There is mild lumbar spondylosis. There may be moderate to severe central canal stenosis at L4-L5. Likely up to severe foraminal stenosis at right L4-L5 as well. Limited views of the abdomen and pelvis show no soft tissue abnormality. There are vascular calcifications of the aorta without aneurysm. IMPRESSION: 1. Degenerative changes of the lumbar spine without acute osseous abnormality. 2. Likely moderate to severe central canal and severe right neuroforaminal stenosis at L4-L5. Dictated by: Dictated on workstation # [id number] Dict: 09/05/231699 Trans: 09/05/231713 [id number] Interpreted by: DORA HAAS DO Electronically signed by: DORA HAAS DO 09/05/23 1714 (LIDA EAST APRN) Departure Impression Primary Impression: Neuroforaminal stenosis of lumbar spine Additional Impressions: Central stenosis of spinal canal Sciatic nerve pain Osteoarthritis Disposition: 01 HOME, SELF-CARE Condition: Stable Departure-Patient Inst. Decision time for Depature: 17:46 (LIDA EAST APRN) Referrals: ISABELLA DWYER MD (PCP/Family) Primary Care Physician Patient Instructions: Sciatica Add. Discharge Instructions: You have narrowing of your spine causing compression on your sciatic nerve, this is causing the pain you are experiencing. Continue taking your cyclobenzaprine as prescribed. Take the Medrol Dosepak as prescribed. Use the lidocaine patches. Wear 1 patch for 12 hours, then you must remove it and leave off for 12 hours prior to placing the next patch. Follow-up with your primary care provider. Return if you are unable to walk, you develop numbness or tingling in your groin or inner thigh area, or have episodes of bowel or bladder incontinence, or any other new, concerning, or worsening symptoms. All discharge instructions reviewed with patient and/or family. Voiced understanding. Scripts Methylprednisolone (Methylprednisolone Dose Pack) 4 Mg Tab.ds.pk 4 MG PO UD for 6 Days, #21 PKG 0 Refills PER DOSE PACK INSTRUCTIONS Prov: LIDA EAST APRN 09/05/23 Lidocaine (Lidocaine) 4 % Adh..patch 1 EACH TP DAILY for 7 Days, #7 PATCH 0 Refills Wear 1 patch for 12 hours, remove and go patch free for 12 hours prior to placing the next patch. Prov: LIDA EAST APRN 09/05/23 ATTENDING PHYSICIAN NOTE: I was physically present as attending physician in the emergency department during the care of this patient, but I was not directly involved in the decision making or delivery of care for this patient. (TEODORO TEJADA MD) Copy Copies To 1: ISABELLA DWYER MD, BRITTANY R APRN Sep 05, 2023 16:34 TEODORO TEJADA MD Sep 08, 2023 16:50
--- NOTE | 2023-09-05 17:12 | Diagnostic Imaging Report ---
EXAMINATION: CT lumbar spine without contrast. TECHNIQUE: Multiple contiguous axial images were obtained through the lumbar spine without the use of intravenous contrast. Sagittal and coronal reformations were then performed. All CT scans use one or more of the following dose optimizing techniques: automated exposure control, MA and/or KvP adjustment based on patient size and exam type or iterative reconstruction. HISTORY: Lower back pain. COMPARISON: None available. FINDINGS: Grade 1 anterolisthesis of L4 on L5. Minimal levocurvature of the lumbar spine centered at L3. Vertebral body heights are normal and no fracture is seen. Mild multilevel facet hypertrophy. Mild disc height loss at L4-L5. There is mild lumbar spondylosis. There may be moderate to severe central canal stenosis at L4-L5. Likely up to severe foraminal stenosis at right L4-L5 as well. Limited views of the abdomen and pelvis show no soft tissue abnormality. There are vascular calcifications of the aorta without aneurysm. IMPRESSION: 1. Degenerative changes of the lumbar spine without acute osseous abnormality. 2. Likely moderate to severe central canal and severe right neuroforaminal stenosis at L4-L5. Dictated by: Dictated on workstation # [id number]
--- NOTE | 2023-09-05 17:15 | Diagnostic Imaging Report ---
EXAMINATION: Pelvis and right hip radiographs. EXAM DATE: 09/05/2023 5:07 PM. COMPARISON: None available. HISTORY: Right hip pain. TECHNIQUE: 3 views. FINDINGS: There is no acute fracture, dislocation, or destructive osseous process. The joint spaces are normal. The soft tissues are normal. IMPRESSION: No acute osseous abnormality. Dictated by: Dictated on workstation # [id number]
[2023-09-05] MEDS ORDERED: METH4TAB10 PO (17:49)
[2023-09-05] MEDS ORDERED: LIDO1ADH78 TP (17:49)
[2023-09-05 18:03] VITALS: BP 161/89
== END 2023-09-05 18:05 | disposition home or self-care (01) ==
LOC: EDUNIT# 15:55 → ER 15:57
DX: M48.061 Spinal stenosis, lumbar region without neurogenic claudication (principal); M54.42 Lumbago with sciatica, left side; M54.41 Lumbago with sciatica, right side; M19.90 Unspecified osteoarthritis, unspecified site
CPT/HCPCS: 72131; 96372